=== PATIENT | male | born 1970 | race Caucasian/White ===

== ENCOUNTER 2021-05-31 08:45 | Outpatient (RCR) | payer OTHER, SELFPAY | END 2021-06-10 09:27 | disposition home or self-care (01) | LOC: HO.WCC 08:45 | PROVIDERS: PCP Internal Medicine; Visit Provider Physician Assistant | DX: E11.628 Type 2 diabetes mellitus with other skin complications (principal); L98.9 Disorder of the skin and subcutaneous tissue, unspecified; E11.65 Type 2 diabetes mellitus with hyperglycemia; E11.40 Type 2 diabetes mellitus with diabetic neuropathy, unspecified; Z79.4 Long term (current) use of insulin; Z79.84 Long term (current) use of oral hypoglycemic drugs; Z87.891 Personal history of nicotine dependence | CPT/HCPCS: 99212 ==

== ENCOUNTER 2022-08-06 12:40 | Outpatient (REF) | payer BC, MEDICARE, MEDICAID, SELFPAY ==
[2022-08-06 12:59] LABS: MANUAL DIFF FLAG NO
[2022-08-06 14:06] LABS: Appearance Urine Clear; Color Urine Yellow; Glucose Urine UA >=1000 mg/dL (Negative); Leukocyte Esterase Urine Negative (Negative); Nitrite Urine Negative (Negative); PH 5.5 (5.0-9.0); Specific Gravity - Urine >= 1.030 (1.005-1.025); UMIC TRIGGER UACC YES; Urine Blood Negative (Negative); Urine Ketones 15 mg/dL (Negative); Urine Protein Negative (Neg-Trace)
[2022-08-06 14:09] LABS: Bacteria Urine None Seen (None Seen); Hyaline Casts Urine 0-2 /LPF (0-2); RBC Urine 0-2 /HPF (0-2); Squamous Epithelial Cell Urine 0-2 /HPF (0-2); WBC Urine 0-5 /HPF (0-5)
[2022-08-06 14:36] LABS: Basophils Percent Auto 0.3 % (0-2); Eosinophils Absolute Auto 0.1 X10*3/uL (0.0-0.4); Hematocrit 41.6 % (42.0-52.0); Hemoglobin 14.3 g/dl (14.0-18.0); Imm Gran Abs Auto 0.03 X10*3/uL (0.00-0.03); Imm Gran Pct Auto 0.4 % (0.0-0.4); Lymphocytes Absolute Auto 2.7 X10*3/uL (1.2-4.9); Lymphocytes Percent Auto 36.8 % (20-40); Mean Corpuscular HGB Conc 34.4 g/dl (31.0-36.0); Mean Corpuscular Hemoglobin 30.2 pg (27.0-33.0); Mean Corpuscular Volume 87.9 fL (80.0-98.0); Mean Platelet Volume 10.8 fL (9.4-12.4); Monocytes Absolute Auto 0.5 X10*3/uL (0.1-1.2); Monocytes Percent Auto 6.9 % (2-11); Neutrophils Percent Auto 54.6 % (45-73); Platelet Count 265 X10*3/uL (160-400); Red Blood Count 4.73 X10*6/uL (4.60-5.80); Red Cell Distribution Width 12.6 % (11.0-16.0); White Blood Count 7.3 X10*3/uL (4.8-10.8)
[2022-08-06 15:15] LABS: Creatinine Urine 193.18 mg/dL; Microalbum/Creatinine Ratio Ur 11.3 ug/mg cr
[2022-08-06 15:26] LABS: Alanine Aminotransferase 22 U/L (0-40); Albumin Level 4.4 g/dL (3.5-5.0); Alkaline Phosphatase 115 U/L (39-117); Anion Gap 12 (12-20); Aspartate Amino Transferase 19 U/L (5-37); Bilirubin Total 1.7 mg/dL (0.0-1.0); Blood Urea Nitrogen 16 mg/dL (9-16); Calcium 9.3 mg/dL (8.4-10.2); Carbon Dioxide 26 mmol/L (22-29); Chloride 106 mmol/L (96-108); Cholesterol 128 mg/dL; Estimated Glomerular Filt Rate > 60; Glucose Fasting 245 mg/dL (60-99); HDL Cholesterol 34 mg/dL; LDL Cholesterol Calculated 70 mg/dl; Potassium 4.7 mmol/L (3.3-5.1); Sodium 139 mmol/L (135-145); Total Protein 7.3 g/dL (6.5-8.0); Triglycerides 123 mg/dL
[2022-08-06 15:35] LABS: TSH reflex Free T4 0.86 uIU/mL (0.32-4.0); Vitamin D 25-OH Total 24.4 ng/mL (>30)
[2022-08-08 16:08] LABS: TS Negative Control Passed; TS Panel A 0; TS Panel B 0; TS Positive Control Passed; TSpotTB Negative (Negative)
== END 2022-08-06 12:41 | disposition home or self-care (01) ==
LOC: HO.LAB 12:40
PROVIDERS: PCP Internal Medicine; Visit Provider Internal Medicine
DX: Z11.1 Encounter for screening for respiratory tuberculosis (principal); I10 Essential (primary) hypertension; E55.9 Vitamin D deficiency, unspecified; E11.9 Type 2 diabetes mellitus without complications; E78.00 Pure hypercholesterolemia, unspecified
CPT/HCPCS: 36415; 80053; 80061; 81001; 82043; 82306; 84443; 85025; 86481

== ENCOUNTER 2022-12-01 15:31 | Outpatient (AMB) | payer BC, MEDICARE, MEDICAID, SELFPAY ==
--- NOTE | 2022-12-01 15:35 | MHC.PC.OV ---
Vital Signs 12/01/22 15:36 Height 6 ft 1 in Weight 207 lb 4 oz BMI 27.3 BP 126/82 Blood Pressure Location Lt brachial Position Sitting Pulse 89 Pulse Source Pulse Oximeter Pulse Oximetry (%) 96 Oxygen Delivery Method Room Air Intake Visit Reasons: 4 month f/u Maxillofacial Prosthodontist Required: No Accompanied by: Self / Same As Patient Allergies Penicillins [PCN] Allergy (Intermediate, Verified 12/02/22 09:16) HIVES metformin Adverse Reaction (Intermediate, Verified 12/02/22 09:16) diarrhea Medication List - Last Reconciled 12/02/22 by Brando Ortiz MD albuterol sulfate 90 mcg/actuation (ProAir HFA) 2 puffs inhalation Q4-6H PRN beclomethasone dipropionate 80 mcg/actuation (Qvar RediHaler) 1 inh inhalation BID dulaglutide 1.5 mg (0.5 mL) subcut QWEEK 90 days glipizide ER 2.5 mg PO DAILY 90 days montelukast 10 mg PO QPM Tobacco use date assessed: 12/01/22 Dental Screening Dental Screen Date: 12/01/22 Did you have a dental visit in the last 12 months?: Yes Did you have a dental problem in the last 6 months where you did not have access to dental care?: No Was dental information given to patient?: Patient has dentist HPI 4 month f/u HPI Details Patient comes in today for his follow up visit States that he feels okay He denies any headaches or dizziness Denies any chest pains, no SOB No nausea/vomiting, no abdominal pain No change in bowel habits noted Has no follow up labs done recently although he did get some labs done a couple of weeks after he was last here in June 2022 [facility] Medical History Pure hypercholesterolemia Overweight (BMI 25.0-29.9) Erectile dysfunction Hypotestosteronism GERD (gastroesophageal reflux disease) Asthma Hyperlipidemia Diabetes mellitus Surgical History No pertinent past surgical history Family History Father Cancer Mother Diabetes CVD (cardiovascular disease) Brother No problems noted. Brother No problems noted. Social History Housing: House Alcohol intake: former Patient Tobacco Use Status: Former Tobacco user Second Hand Smoke Exposure: Yes service: No Current occupational status: disabled Cognitive needs: No Hearing needs: No Vision needs: Yes Questionnaire PHQ-9 Over the last 2 weeks, how often have you been bothered by any of the following problems? 1. Little interest or pleasure in doing things: not at all 2. Feeling down, depressed, or hopeless: not at all 3. Trouble falling or staying asleep, or sleeping too much: not at all 4. Feeling tired or having little energy: not at all 5. Poor appetite or overeating: not at all 6. Feeling bad about yourself - or that you are a failure or have let yourself or your family down: not at all 7. Trouble concentrating on things, such as reading the newspaper or watching television: not at all 8. Moving or speaking so slowly that other people could have noticed. Or the opposite - being so fidgety or restless that you have been moving around a lot more than usual: not at all 9. Thoughts that you would be better off or of hurting yourself in some way: not at all Total score: 0 Depression Screening Interpretation: Negative [id number] - PHQ-9 Billing: Yes Source: Developed by Drs. Manish Mo, Jyothi Serrano, Deondre An and colleagues, with an educational alicia from [employer]. Thrive Questionnaire Date Thrive assessed: 12/01/22 I am a: Patient What is your living situation today?: I have a steady place to live Within the past 12 months, did the food you bought not last and you didn't have the money to get more?: Never true Within the past 12 months, did you worry whether your food would run out before you got money to buy more?: Never true Do you have trouble paying for medicines?: No Do you have trouble getting transportation to medical appointments?: No Do you have trouble paying your heating and electricity bill?: No Do you have trouble taking care of your child, family member or friend?: No Do you have trouble with day-to-day activities such as bathing, preparing meals, shopping, managing finances, etc.?: No Are you currently unemployed and looking for a job?: No Are you interested in more education?: No Please select the resources that you would like help with: None Currently or been in a relationship where the following occur: no concerns reported AUDIT C Alcohol Use Questionnaire (AUDIT-C) 1. How often do you have a drink containing alcohol?: Never 3. How often do you have six or more drinks on one occasion?: Never Total Score: 0 Score Reviewed/Action Taken: Yes ALESSANDRO-7 AMB Questionnaire ALESSANDRO-7 Date ALESSANDRO - 7 assessed: 12/01/22 Feeling nervous, anxious, or on edge: 0 = Not at all Not being able to stop or control worryin = Not at all Worrying too much about different things: 0 = Not at all Trouble relaxin = Not at all Being so restless that it is hard to sit still: 0 = Not at all Becoming easily annoyed or irritable: 0 = Not at all Feeling afraid as if something awful might happen: 0 = Not at all Total ALESSANDRO-7 score (0-4 normal; 5-9 mild; 10-14 moderate; 15-21 severe): 0 Source: Developed by Drs. Manish Mo, Jyothi Serrano, Deondre An and colleagues, with an educational alicia from [employer]. Review of Systems Const Denies chills, Denies fatigue, Denies fever(s) and Denies headache(s) ENT Denies dysphagia, Denies dizziness, Denies otalgia, Denies headache(s), Denies neck pain, Denies odynophagia and Denies sore throat Card Denies chest pain, Denies palpitations and Denies dyspnea Resp Denies cough and Denies dyspnea GI Denies abdominal pain, Denies constipation, Denies dysphagia, Denies heartburn, Denies diarrhea, Denies nausea, Denies odynophagia and Denies vomiting Denies dysuria, Reports nocturia and Reports urinary frequency Musc Denies neck pain Neuro Denies dizziness and Denies headache(s) Endo Denies fatigue and Denies palpitations Physical exam (Primary Care) Vital Signs: Last Vital Signs Pulse 89 12/01/22 15:36 BP 126/82 12/01/22 15:36 Pulse Ox 96 12/01/22 15:36 Oxygen Delivery Method Room Air 12/01/22 15:36 BMI result Body Mass Index 27.3 Tobacco/Smoking Status: Tobacco use Status Tobacco use date assessed 12/01/22 12/01/22 15:40 Patient Tobacco Use Status Former Tobacco user 12/01/22 15:40 PHQ-9: PHQ-9 Score PHQ-9: Total score 0 12/01/22 16:16 Depression Screening Interpretation: Negative Thrive Assessment: Date of Thrive Assessment Date Thrive assessed 12/01/22 12/01/22 15:40 Currently or been in a relationship where the following occur: no concerns reported Const General: no acute distress and alert HENMT Ears: TM's normal bilaterally and EAC's normal Throat: Yes posterior oropharynx normal and Yes tonsils normal (no TP congestion) Neck Neck: Yes no lymphadenopathy and Yes supple Resp Auscultation: clear to auscultation bilaterally, no rales and no wheezes Cardio Rate: regular rate Rhythm: regular rhythm Heart sounds: no murmurs GI Palpation (GI): Soft to palpation and nontender Auscultation: normal bowel sounds Skin Rashes: no rashes Extrem General: Yes no clubbing, cyanosis or edema Results AMB Hemoglobin A1c AMB Hemoglobin A1c 10.5 % Last Edit by Laci Matias on 12/01/22 16:00 Results Reviewed Results Reviewed: Laboratory Last Values Hgb A1c (Clinic) 10.5 % (4.0-6.0) H 12/01/22 15:49 Laboratory Tests 08/06/22 12/01/22 12:57 15:49 Hgb A1c (Clinic) 10.5 H AST 19 ALT 22 Triglycerides 123 Cholesterol 128 LDL Cholesterol, Calc 70 HDL Cholesterol 34 Assessment and Plan Assessment & Plan (1) Diabetes mellitus: Code(s): E11.9 - Type 2 diabetes mellitus without complications Qualifiers: Diabetes mellitus type: type 2 Diabetes mellitus care home insulin use: without terminal manager use Diabetes mellitus complication status: without complication Qualified Code(s): E11.9 - Type 2 diabetes mellitus without complications Plan: In-office HgbA1c done today is at 10.5% (was at 9.9% a few months ago in June 2022) - goal is < 7.0% Reinforced diabetic diet Continue Glipizide ER 2.5 mg QD and Trulicity to 1.5 mg SQ once a week - patient admits that he forgets to take his Trulicity about half of the time; states that by the time he remembers to take it, it has been past due for a few days already He could not tolerate Metformin or Metformin ER in the past and is advised that if he still cannot get his diabetes under control with Trulicity, the next step would be to start him on some form of insulin and he prefers not to do that (2) Pure hypercholesterolemia: Code(s): E78.00 - Pure hypercholesterolemia, unspecified Plan: His fasting lipids were at goal when last checked in July 2022 Reinforced low cholesterol diet Will recheck his labs and fasting lipids in 3 months for follow up (3) Asthma: Code(s): J45.909 - Unspecified asthma, uncomplicated Qualifiers: Asthma severity: mild Asthma persistence: intermittent Asthma complication type: uncomplicated Qualified Code(s): J45.20 - Mild intermittent asthma, uncomplicated Plan: Appears stable Continue Montelukast 10 mg QD, Albuterol HFA 2 puffs every 6 hours PRN and Qvar Redihaler 80 mcg 1 inhalation BID (4) GERD (gastroesophageal reflux disease): Code(s): K21.9 - Gastro-esophageal reflux disease without esophagitis Qualifiers: Esophagitis presence: without esophagitis Qualified Code(s): K21.9 - Gastro-esophageal reflux disease without esophagitis Plan: Dietary restrictions reinforced (5) Overweight (BMI 25.0-29.9): Code(s): E66.3 - Overweight Plan: Reinforced diet/exercise as tolerated/lose weight Plan Follow up in 3 months Orders: Orders Comprehensive [place]. Panel Fast 3 Months E78.00 - Pure hypercholesterolemia, unspecified Complete Blood Count Auto Diff 3 Months I10 - Essential (primary) hypertension Microalbumin, Random (w Creat) 3 Months E11.9 - Type 2 diabetes mellitus without complications AMB Hemoglobin A1c 12/01/ Z13.9 - Encounter for screening, unspecified Lipid Panel 3 Months E78.00 - Pure hypercholesterolemia, unspecified TSH reflex Free T4 3 Months E78.00 - Pure hypercholesterolemia, unspecified UA CC w/rflx Micro + Cult 3 Months R30.0 - Dysuria Hemoglobin A1c 3 Months E11.9 - Type 2 diabetes mellitus without complications Vitamin D 25-OH Total 3 Months E55.9 - Vitamin D deficiency, unspecified Coding Level of Care Code Est Pt Level 4 (59378) Diagnoses Type 2 diabetes mellitus without complication, without long-term current use of insulin E11.9 Diabetes mellitus type: type 2 Diabetes mellitus terminal manager insulin use: without terminal manager use Diabetes mellitus complication status: without complication Pure hypercholesterolemia E78.00 Mild intermittent asthma without complication J45.20 Asthma severity: mild Asthma persistence: intermittent Asthma complication type: uncomplicated Gastroesophageal reflux disease without esophagitis K21.9 Esophagitis presence: without esophagitis Overweight (BMI 25.0-29.9) E66.3
[2022-12-01 15:36] VITALS: BP 126/82; PULSE 89; O2SAT 96; BMI 27.3
== END 2022-12-01 16:23 | disposition home or self-care (01) ==
PROVIDERS: PCP Internal Medicine; Visit Provider Internal Medicine
DX: E11.9 Type 2 diabetes mellitus without complications (principal)
CPT/HCPCS: 83036; 99214

== ENCOUNTER 2024-04-29 16:04 | Outpatient (AMB) | payer MEDICARE, MEDICAID, SELFPAY ==
[2024-04-29 16:05] VITALS: BP 116/80; PULSE 89; O2SAT 96; BMI 28.3
--- NOTE | 2024-04-29 16:05 | MHC.PC.OV ---
Vital Signs 04/29/24 16:05 Height 6 ft 1 in Weight 214 lb 8 oz BMI 28.3 BP 116/80 Blood Pressure Location Lt brachial Position Sitting Pulse 89 Pulse Source Pulse Oximeter Pulse Oximetry (%) 96 Oxygen Delivery Method Room Air Intake Visit Reasons: Rsch. from 05/02 DM Allergies Penicillins [PCN] Allergy (Intermediate, Verified 04/29/24 16:32) HIVES metformin Adverse Reaction (Intermediate, Verified 04/29/24 16:32) diarrhea Medication List - Last Reconciled 04/29/24 by Leann Olson PA-C albuterol sulfate 90 mcg/actuation 2 puffs inhalation Q4-6H PRN azithromycin For 250 mg dose pack: take 500 mg today (day 1), then 250 mg for 4 days (days 2-5) PO beclomethasone dipropionate 80 mcg/actuation (Qvar RediHaler) 1 inh inhalation BID dulaglutide 1.5 mg (0.5 mL) subcut QWEEK 90 days glipizide ER 2.5 mg PO DAILY 90 days Tobacco use date assessed: 04/29/24 Dental Screening Dental Screen Date: 04/29/24 Did you have a dental visit in the last 12 months?: Yes Did you have a dental problem in the last 6 months where you did not have access to dental care?: No Was dental information given to patient?: Patient has dentist [facility] Medical History (Updated 04/29/24 @ 16:46 by Leann Olson PA-C) Bronchitis Follow-up exam General medical exam Pure hypercholesterolemia Overweight (BMI 25.0-29.9) Erectile dysfunction Hypotestosteronism GERD (gastroesophageal reflux disease) Asthma Hyperlipidemia Diabetes mellitus Surgical History No pertinent past surgical history Family History Father Cancer Mother Diabetes CVD (cardiovascular disease) Brother No problems noted. Brother No problems noted. Social History Housing: House Alcohol intake: former Patient Tobacco Use Status: Former Tobacco user Second Hand Smoke Exposure: Yes service: No Current occupational status: disabled Cognitive needs: No Hearing needs: No Vision needs: Yes Questionnaire PHQ-9 Over the last 2 weeks, how often have you been bothered by any of the following problems? 1. Little interest or pleasure in doing things: not at all 2. Feeling down, depressed, or hopeless: not at all 3. Trouble falling or staying asleep, or sleeping too much: not at all 4. Feeling tired or having little energy: not at all 5. Poor appetite or overeating: not at all 6. Feeling bad about yourself - or that you are a failure or have let yourself or your family down: not at all 7. Trouble concentrating on things, such as reading the newspaper or watching television: not at all 8. Moving or speaking so slowly that other people could have noticed. Or the opposite - being so fidgety or restless that you have been moving around a lot more than usual: not at all 9. Thoughts that you would be better off or of hurting yourself in some way: not at all Total score: 0 Depression Screening Interpretation: Negative Depression Screening Done: Yes 69762 - PHQ-9 Billing: Yes Source: Developed by Drs. Manish Mo, Jyothi Serrano, Deondre An and colleagues, with an educational alicia from [employer]. Thrive Questionnaire Date Thrive assessed: 04/29/24 I am a: Patient What is your living situation today?: I have a steady place to live Within the past 12 months, did the food you bought not last and you didn't have the money to get more?: Never true Within the past 12 months, did you worry whether your food would run out before you got money to buy more?: Never true Do you have trouble paying for medicines?: No Do you have trouble getting transportation to medical appointments?: No Do you have trouble paying your heating and electricity bill?: No Do you have trouble taking care of your child, family member or friend?: No Do you have trouble with day-to-day activities such as bathing, preparing meals, shopping, managing finances, etc.?: No Are you currently unemployed and looking for a job?: No Are you interested in more education?: No Please select the resources that you would like help with: None THRIVE Score: 0 AUDIT C Alcohol Use Questionnaire (AUDIT-C) 1. How often do you have a drink containing alcohol?: Never 3. How often do you have six or more drinks on one occasion?: Never Total Score: 0 Score Reviewed/Action Taken: Yes ALESSANDRO-7 AMB Questionnaire ALESSANDRO-7 Date ALESSANDRO - 7 assessed: 04/29/24 Feeling nervous, anxious, or on edge: 0 = Not at all Not being able to stop or control worryin = Not at all Worrying too much about different things: 0 = Not at all Trouble relaxin = Not at all Being so restless that it is hard to sit still: 0 = Not at all Becoming easily annoyed or irritable: 0 = Not at all Feeling afraid as if something awful might happen: 0 = Not at all Total ALESSANDRO-7 score (0-4 normal; 5-9 mild; 10-14 moderate; 15-21 severe): 0 Source: Developed by Drs. Manish Mo, Jyothi Serrano, Deondre An and colleagues, with an educational alicia from [employer]. ALESSANDRO-7 Assessment Billing ALESSANDRO-7 Assessment Tool: ALESSANDRO-7 Assessment 98203 Physical exam (Primary Care) Vital Signs: Last Vital Signs Pulse 89 04/29/24 16:05 BP 116/80 04/29/24 16:05 Pulse Ox 96 04/29/24 16:05 Oxygen Delivery Method Room Air 04/29/24 16:05 Care Plan Goal for BP management: <130/80 BMI result Body Mass Index 28.3 BMI Assessment/Plan discussion: High BMI High, discussed plan: lifestyle, weight reduction, dietary, physical activity and alcohol moderation Tobacco/Smoking Status: Tobacco use Status Tobacco use date assessed 04/29/24 04/29/24 16:13 Patient Tobacco Use Status Former Tobacco user 04/29/24 16:13 PHQ-9: PHQ-9 Score PHQ-9: Total score 0 04/29/24 16:13 Depression Screening Interpretation: Negative Thrive Assessment: Date of Thrive Assessment Date Thrive assessed 04/29/24 04/29/24 16:13 Results AMB Hemoglobin A1c AMB Hemoglobin A1c 7.7 % Last Edit by Sisi Aceves CMA on 04/29/24 16:16 Results Reviewed Results Reviewed: Laboratory Last Values Hgb A1c (Clinic) 7.7 % (4.0-6.0) H 04/29/24 16:13 Coding Level of Care Code Est Pt Level 4 (00572) Complex EM visit Add On G2211 Diagnoses Follow-up exam Z09 Pure hypercholesterolemia E78.00 Hypertension I10 Overweight (BMI 25.0-29.9) E66.3 Type 2 diabetes mellitus without complication, without long-term current use of insulin E11.9 Diabetes mellitus type: type 2 Diabetes mellitus [facility] insulin use: without exterminator helper use Diabetes mellitus complication status: without complication Pure hypercholesterolemia E78.00 Hyperlipidemia type: pure hypercholesterolemia Mild intermittent asthma without complication J45.20 Asthma severity: mild Asthma persistence: intermittent Asthma complication type: uncomplicated Gastroesophageal reflux disease without esophagitis K21.9 Esophagitis presence: without esophagitis Hypotestosteronism E34.9 Erectile dysfunction, unspecified erectile dysfunction type N52.9 Erectile dysfunction type: unspecified Bronchitis J40 Additional Codes PHQ-9 - 26319 - PHQ-9 Billing: Yes ([id number]) ALESSANDRO-7 Assessment Billing - ALESSANDRO-7 Assessment Tool: ALESSANDRO-7 Assessment 17845 ([id number]) Assessment & Plan Assessment & Plan (1) Follow-up exam: Code(s): Z09 - Encounter for follow-up examination after completed treatment for conditions other than malignant neoplasm Category: Medical (2) Pure hypercholesterolemia: Code(s): E78.00 - Pure hypercholesterolemia, unspecified Category: Medical Plan: Condition is chronic and stable continue to monitor. (3) Hypertension: Code(s): I10 - Essential (primary) hypertension Category: Medical Plan: Condition is chronic and stable continue to monitor. (4) Overweight (BMI 25.0-29.9): Code(s): E66.3 - Overweight Category: Medical Plan: Patient improving his diet and exercising a lot more. Condition is chronic and stable continue to monitor. (5) Diabetes mellitus: Code(s): E11.9 - Type 2 diabetes mellitus without complications Category: Medical Qualifiers: Diabetes mellitus type: type 2 Diabetes mellitus exterminator helper insulin use: without [facility] use Diabetes mellitus complication status: without complication Qualified Code(s): E11.9 - Type 2 diabetes mellitus without complications Plan: A1c level in October of 2022 was 10.5 today it is 7.7. Patient currently on Trulicity 1.5 mg subQ weekly and glipizide 2.5 mg weekly. I suggested increasing the Trulicity or adding metformin and patient declined at this time reports he does not want to make any changes in his medications due to his A1c has significantly come down. Patient to follow-up in [address] Ortzi if A1c level is not at 7.0 or less adjustments will be made. Patient understands agrees with this plan. (6) Hyperlipidemia: Code(s): E78.5 - Hyperlipidemia, unspecified Category: Medical Qualifiers: Hyperlipidemia type: pure hypercholesterolemia Qualified Code(s): E78.00 - Pure hypercholesterolemia, unspecified Plan: Condition is chronic and stable continue to monitor. (7) Asthma: Code(s): J45.909 - Unspecified asthma, uncomplicated Category: Medical Qualifiers: Asthma severity: mild Asthma persistence: intermittent Asthma complication type: uncomplicated Qualified Code(s): J45.20 - Mild intermittent asthma, uncomplicated Plan: Patient has albuterol and Qvar RediHaler. Condition is chronic and stable continue to monitor. (8) GERD (gastroesophageal reflux disease): Code(s): K21.9 - Gastro-esophageal reflux disease without esophagitis Category: Medical Qualifiers: Esophagitis presence: without esophagitis Qualified Code(s): K21.9 - Gastro-esophageal reflux disease without esophagitis Plan: Condition is chronic and stable continue to monitor. (9) Hypotestosteronism: Code(s): E34.9 - Endocrine disorder, unspecified Category: Medical Plan: Patient requesting labs for testosterone due to history of low testosterone. Not currently on testosterone supplements. Will order at this time. Condition is chronic and stable continue to monitor. (10) Erectile dysfunction: Code(s): N52.9 - Male erectile dysfunction, unspecified Category: Medical Qualifiers: Erectile dysfunction type: unspecified Qualified Code(s): N52.9 - Male erectile dysfunction, unspecified Plan: Condition is chronic and stable continue to monitor. (11) Bronchitis: Code(s): J40 - Bronchitis, not specified as acute or chronic Category: Medical Plan: Patient with bronchitis infection. Will prescribe Z-Alex. Will continue to monitor. Plan Plan - Maintain current diabetes management with Trulicity and Glipizide. Encourage lifestyle modifications, including diet and exercise, to further improve HbA1c. - Treat upper respiratory infection symptoms with a Z-Alex to address persistent cough. - Monitor peripheral neuropathy symptoms; further discussion on glucose management to mitigate neuropathy progression. - Proceed with fasting lab work to evaluate liver function, lipid panel, testosterone levels, and reassess diabetes control. - Discuss possible prostate cancer screening due to family history. - Encourage continuous activity and weight management strategies. Orders: Orders T Spot TB Today Z00.00 - Encounter for general adult medical examination without abnormal findings TSH reflex Free T4 Today Z00.00 - Encounter for general adult medical examination without abnormal findings Microalbumin, Random (w Creat) Today E11.9 - Type 2 diabetes mellitus without complications Vitamin D 25-OH Total Today Z00.00 - Encounter for general adult medical examination without abnormal findings Testosterone, Total Today Z00.00 - Encounter for general adult medical examination without abnormal findings PSA,Total (Free>4and<10) Today Z00.00 - Encounter for general adult medical examination without abnormal findings AMB Hemoglobin A1c Today Z13.9 - Encounter for screening, unspecified Complete Blood Count Auto Diff Today Z00.00 - Encounter for general adult medical examination without abnormal findings Comprehensive Met. Panel Today Z00.00 - Encounter for general adult medical examination without abnormal findings Lipid Panel Today Z00.00 - Encounter for general adult medical examination without abnormal findings Magnesium Today Z00.00 - Encounter for general adult medical examination without abnormal findings Liver Panel Today Z00.00 - Encounter for general adult medical examination without abnormal findings Medications: New azithromycin For 250 mg dose pack: take 500 mg today (day 1), then 250 mg for 4 days (days 2-5) PO 6 tabs 0RF Refilled dulaglutide 1.5 mg (0.5 mL) subcut QWEEK 90 days 2 mL 3RF E11.9 - Type 2 diabetes mellitus without complications Patient Instructions: Patient Instructions - Continue current diabetes medications as prescribed. - Begin Z-Alex as directed for cough. - Schedule fasting blood tests for liver function, lipid panel, and testosterone levels. - Engage in regular exercise and monitor dietary intake to support ongoing weight management. - Report any significant changes in symptoms, particularly regarding neuropathy and respiratory issues. - Follow up in six months for reassessment of diabetes and overall health. - Consider prostate cancer screening discussion in future visits. Scribe Plan - Not visible on output: History of Present Illness The patient is a 54-year-old male presenting for a follow-up regarding his Type 2 Diabetes Mellitus. Previously diagnosed, he is on Trulicity 1.5 mg weekly and Glipizide 2.5 mg daily. His most recent HbA1c was 7.7, improved from 10.5 in November 2022. The patient reports significant weight loss of approximately 120 pounds since the onset of diabetes, attributed to dietary changes. He experiences periodic glucose levels ranging from 120 to 300, dependent on diet. He also reports improved asthma symptoms, requiring the red inhaler only for emergencies, notably experiencing fewer issues as he ages. He has recently had symptoms of an upper respiratory infection, characterized by a persistent cough and flu-like symptoms without fever. He manages asthma with emergency inhalers and has lost additional weight, contributing to an improvement. He expresses concern over potential peripheral neuropathy manifesting as toe pain. Lastly, he requests a follow-up on a prior TB test, likely related to caregiving for his mother, and seeks evaluation for testosterone levels due to energy loss and potential muscle mass reduction. Social History - Significant weight loss of approximately 120 pounds since diagnosed with diabetes. - Active care for his elderly mother, indicating family responsibilities. - Decreased food intake recently due to illness. - Attempts regular exercise and walking to manage weight and health. - Expresses interest in improving muscle mass and physical fitness. - Family history includes prostate cancer in his father. Review of Systems - Constitutional: Reports weight loss. - Respiratory: Reports persistent cough associated with changing from hot to cold environments. - Neurological: Reports toe pain suggestive of possible neuropathy. - Musculoskeletal: Reports difficulty in increasing muscle mass. Physical Exam Appearance: Alert. Oriented X3. No acute distress. Head: Normal external exam. Normocephalic. Atraumatic. Eyes: Pupils are equal, round, and reactive to light. Extraocular movements intact. Conjunctiva and sclera normal. Eyelids normal. Ears: External auditory canal normal. Tympanic membranes normal. Throat: Pharynx normal. Uvula midline. Moist mucous membranes. Neck: Normal inspection. Neck supple. Full range of motion. No adenopathy. Thyroid Normal. No meningeal signs. No neck mass noted. Cardiovascular: Normal heart rate and rhythm. Heart sound normal. No murmurs noted. Pulses normal throughout. Respiratory: No respiratory distress. Painless inspiration. Breath sounds normal. No wheezes/rales/rhonchi noted. Chest nontender. No accessory muscle usage noted or decreased air movement noted. Abdomen: Soft and nontender. Bowel sounds normal in all 4 quadrants. No distention noted. No organomegaly noted. No visible injury noted. Back: No costovertebral angle tenderness. Full range of motion noted. Skin: Skin warm and dry. Normal skin color. Normal skin turgor. No rashes/lesions/lacerations noted. Extremities: No lower extremity edema. Extremities exhibit normal range of motion. Extremities nontender. Neuropathy pain noted in toes. Neuro: Oriented X 3. No motor deficit. No sensory deficit. Reflexes normal. Results - Labs: HbA1c noted to be 7.7 from a previous high of 10.5 in November 2022. Plan - Maintain current diabetes management with Trulicity and Glipizide. Encourage lifestyle modifications, including diet and exercise, to further improve HbA1c. - Treat upper respiratory infection symptoms with a Z-Alex to address persistent cough. - Monitor peripheral neuropathy symptoms; further discussion on glucose management to mitigate neuropathy progression. - Proceed with fasting lab work to evaluate liver function, lipid panel, testosterone levels, and reassess diabetes control. - Discuss possible prostate cancer screening due to family history. - Encourage continuous activity and weight management strategies. Patient was informed and verbally consented to the use of an ambient scribe for clinic note documentation during this visit. Discussion Notes I discussed the ongoing management of diabetes with a focus on maintaining the current regimen of Trulicity and Glipizide, given the improved HbA1c level. We reviewed the importance of lifestyle changes, including diet and exercise, to achieve further glycemic control. An antibiotic, Z-Aelx, was prescribed to address the symptoms of persistent cough. I emphasized the need for fasting blood tests to accurately assess liver function, lipid levels, and added testosterone testing to investigate fatigue and muscle mass concerns. We discussed family history of prostate cancer and considered the potential for screening. Future care was planned with a recommendation to return fasting for a complete panel and six-month follow-up. Patient Instructions - Continue current diabetes medications as prescribed. - Begin Z-Alex as directed for cough. - Schedule fasting blood tests for liver function, lipid panel, and testosterone levels. - Engage in regular exercise and monitor dietary intake to support ongoing weight management. - Report any significant changes in symptoms, particularly regarding neuropathy and respiratory issues. - Follow up in six months for reassessment of diabetes and overall health. - Consider prostate cancer screening discussion in future visits.
== END 2024-04-29 16:35 | disposition home or self-care (01) ==
PROVIDERS: PCP Internal Medicine; Visit Provider Physician Assistant Medical
DX: Z13.9 Encounter for screening, unspecified (principal)

== ENCOUNTER → 2024-04-29 16:04 | Outpatient (BNVA) | payer MEDICARE, MEDICAID, SELFPAY | PROVIDERS: PCP Internal Medicine; Visit Provider Physician Assistant Medical | DX: Z09 Encounter for follow-up examination after completed treatment for conditions other than malignant neoplasm (principal); I10 Essential (primary) hypertension; E66.3 Overweight; E11.9 Type 2 diabetes mellitus without complications; E78.00 Pure hypercholesterolemia, unspecified; J45.20 Mild intermittent asthma, uncomplicated; K21.9 Gastro-esophageal reflux disease without esophagitis; E34.9 Endocrine disorder, unspecified; N52.9 Male erectile dysfunction, unspecified; J40 Bronchitis, not specified as acute or chronic | CPT/HCPCS: 83036; 96127; 99212 ==

== ENCOUNTER 2024-08-19 10:38 | Outpatient (REF) | payer MEDICARE, MEDICAID, SELFPAY ==
[2024-08-19 10:59] LABS: MANUAL DIFF FLAG NO
[2024-08-19 12:04] LABS: Basophils Percent Auto 0.2 % (0-2); Eosinophils Absolute Auto 0.2 X10*3/uL (0.0-0.4); Eosinophils Percent Auto 2.3 % (0-4); Hemoglobin 14.5 g/dl (14.0-18.0); Imm Gran Abs Auto 0.04 X10*3/uL (0.00-0.03); Imm Gran Pct Auto 0.5 % (0.0-0.4); Lymphocytes Absolute Auto 2.2 X10*3/uL (1.2-4.9); Lymphocytes Percent Auto 24.5 % (20-40); Mean Corpuscular HGB Conc 35.4 g/dl (31.0-36.0); Mean Corpuscular Hemoglobin 30.9 pg (27.0-33.0); Mean Corpuscular Volume 87.4 fL (80.0-98.0); Mean Platelet Volume 10.7 fL (9.4-12.4); Monocytes Absolute Auto 0.6 X10*3/uL (0.1-1.2); Monocytes Percent Auto 7.2 % (2-11); Neutrophils Absolute Auto 5.8 x10*3/uL (2.0-8.3); Neutrophils Percent Auto 65.3 % (45-73); Platelet Count 228 X10*3/uL (160-400); Red Blood Count 4.69 X10*6/uL (4.60-5.80); Red Cell Distribution Width 12.6 % (11.0-16.0); White Blood Count 8.8 X10*3/uL (4.8-10.8)
[2024-08-19 13:05] LABS: PSA,Total (Free>4and<10) 0.89 ng/mL (0.00-4.00)
[2024-08-19 13:10] LABS: TSH reflex Free T4 1.38 uIU/mL (0.32-4.0); Vitamin D 25-OH Total 22.5 ng/mL (>30)
[2024-08-19 13:33] LABS: Anion Gap 10 (12-20)
[2024-08-19 13:38] LABS: Alanine Aminotransferase 17 U/L (0-40); Albumin Level 4.2 g/dL (3.5-5.0); Alkaline Phosphatase 100 U/L (39-117); Aspartate Amino Transferase 19 U/L (5-37); Bilirubin Direct 0.4 mg/dL (0.0-0.5); Bilirubin Total 1.3 mg/dL (0.0-1.0); Blood Urea Nitrogen 16 mg/dL (9-16); Calcium 9.1 mg/dL (8.4-10.2); Carbon Dioxide 24 mmol/L (22-29); Chloride 107 mmol/L (96-108); Cholesterol 118 mg/dL (<200); Estimated Glomerular Filt Rate > 60; Glucose Random 227 mg/dL (60-115); HDL Cholesterol 29 mg/dL (>40); LDL Cholesterol Calculated 61 mg/dL (<100); Magnesium 1.8 mg/dL (1.6-2.6); Potassium 3.7 mmol/L (3.3-5.1); Sodium 137 mmol/L (135-145); Total Protein 6.9 g/dL (6.5-8.0); Triglycerides 144 mg/dL (<150)
[2024-08-19 13:45] LABS: Creatinine Urine 304.29 mg/dL; Microalbum/Creatinine Ratio Ur 13.4 ug/mg cr (<30)
[2024-08-22 16:38] LABS: TS Negative Control Passed; TS Panel A 0; TS Panel B 0; TS Positive Control Passed; TSpotTB Negative (Negative)
[2024-09-09 10:49] LABS: Testosterone, Total 260 ng/dL (250-1100)
== END 2024-08-19 10:39 | disposition home or self-care (01) ==
LOC: HO.LAB 10:38
PROVIDERS: PCP Internal Medicine; Visit Provider Physician Assistant Medical
DX: Z00.00 Encounter for general adult medical examination without abnormal findings (principal); E11.9 Type 2 diabetes mellitus without complications; Z12.5 Encounter for screening for malignant neoplasm of prostate
CPT/HCPCS: 36415; 80053; 80061; 82043; 82248; 82306; 82570; 83735; 84153; 84403; 84443; 85025; 86481

== ENCOUNTER 2024-10-27 16:03 | Outpatient (AMB) | payer MEDICARE, MEDICAID, SELFPAY ==
--- NOTE | 2024-10-27 16:10 | A.OFFPC_ITS ---
Vital Signs 10/27/24 16:12 Height 6 ft 1 in Weight 220 lb 2 oz BMI 29.0 BP 122/72 Blood Pressure Location Lt brachial Position Sitting Pulse 82 Pulse Source Pulse Oximeter Temp 97.3 F Temp Source Temporal Artery Scan Pulse Oximetry (%) 97 Oxygen Delivery Method Room Air Intake Visit Reasons: 6 month f/u Intake Note: Patient is here to follow up on DM, HLD, Asthma, HTN. Translator And Interpreter Required: No Operations Manager/Coordinator: Not Required per policy Accompanied by: Self / Same As Patient Allergies Penicillins (PCN) Allergy (Intermediate, Verified 10/27/24 16:47) HIVES metformin Adverse Reaction (Intermediate, Verified 10/27/24 16:47) diarrhea Medication List - Last Reconciled 10/27/24 by Brando Ortiz MD albuterol sulfate 90 mcg/actuation 2 puffs inhalation Q4-6H PRN beclomethasone dipropionate 80 mcg/actuation (Qvar RediHaler) 1 inh inhalation BID cholecalciferol (vitamin D3) 50 mcg PO DAILY dulaglutide (Trulicity) 1.5 mg (0.5 mL) subcut QWEEK glipizide ER 2.5 mg PO DAILY 90 days Tobacco use date assessed: 10/27/24 Dental Screening Dental Screen Date: 04/29/24 HPI 6 month f/u HPI Details Patient comes in today for his follow up visit - was last seen by me almost 2 years ago on 12/01/2022 Patient states that he feels okay He denies any headaches or dizziness Denies any chest pains, no increased shortness of breath No nausea/vomiting, no abdominal pain No change in bowel habits noted He would like to go over the results of his labs done a couple of months ago [facility] Medical History Vitamin D deficiency Bronchitis Follow-up exam General medical exam Pure hypercholesterolemia Overweight (BMI 25.0-29.9) Erectile dysfunction Hypotestosteronism GERD (gastroesophageal reflux disease) Asthma Hyperlipidemia Diabetes mellitus Surgical History No pertinent past surgical history Family History Father Cancer Mother Diabetes CVD (cardiovascular disease) Brother No problems noted. Brother No problems noted. Social History Housing: House Alcohol intake: former Patient Tobacco Use Status: Former Tobacco user e-Cigarette/Vaping Use: Never Used Second Hand Smoke Exposure: Yes service: No Current occupational status: disabled Cognitive needs: No Hearing needs: No Vision needs: Yes (Glasses) Questionnaire PHQ-9 Over the last 2 weeks, how often have you been bothered by any of the following problems? 1. Little interest or pleasure in doing things: not at all 2. Feeling down, depressed, or hopeless: not at all 3. Trouble falling or staying asleep, or sleeping too much: nearly every day 4. Feeling tired or having little energy: nearly every day 5. Poor appetite or overeating: not at all 6. Feeling bad about yourself - or that you are a failure or have let yourself or your family down: not at all 7. Trouble concentrating on things, such as reading the newspaper or watching television: not at all 8. Moving or speaking so slowly that other people could have noticed. Or the opposite - being so fidgety or restless that you have been moving around a lot more than usual: not at all 9. Thoughts that you would be better off or of hurting yourself in some way: not at all Total score: 6 Depression Screening Interpretation: Positive Depression Screening Follow-up: Follow-up Visit Requested Depression Screening Done: Yes 09255 - PHQ-9 Billing: Yes Source: Developed by Drs. Manish Mo, Jyothi Serrano, Deondre An and colleagues, with an educational alicia from [employer]. Thrive Questionnaire Date Thrive assessed: 10/27/24 I am a: Patient What is your living situation today?: I have a steady place to live Within the past 12 months, did the food you bought not last and you didn't have the money to get more?: I choose not to answer this question Within the past 12 months, did you worry whether your food would run out before you got money to buy more?: I choose not to answer this question Do you have trouble paying for medicines?: I choose not to answer this question Do you have trouble getting transportation to medical appointments?: I choose not to answer this question Do you have trouble paying your heating and electricity bill?: I choose not to answer this question Do you have trouble taking care of your child, family member or friend?: I choose not to answer this question Do you have trouble with day-to-day activities such as bathing, preparing meals, shopping, managing finances, etc.?: I choose not to answer this question Are you currently unemployed and looking for a job?: I choose not to answer this question Are you interested in more education?: I choose not to answer this question Please select the resources that you would like help with: None Currently or been in a relationship where the following occur: No concerns reported THRIVE Score: 0 AUDIT C Alcohol Use Questionnaire (AUDIT-C) 1. How often do you have a drink containing alcohol?: Never Total Score: 0 Score Reviewed/Action Taken: Yes ALESSANDRO-7 AMB Questionnaire ALESSANDRO-7 Date ALESSANDRO - 7 assessed: 10/27/24 Feeling nervous, anxious, or on edge: 0 = Not at all Not being able to stop or control worryin = Not at all Worrying too much about different things: 0 = Not at all Trouble relaxin = Nearly every day Being so restless that it is hard to sit still: 3 = Nearly every day Becoming easily annoyed or irritable: 3 = Nearly every day Feeling afraid as if something awful might happen: 0 = Not at all Total ALESSANDRO-7 score (0-4 normal; 5-9 mild; 10-14 moderate; 15-21 severe): 9 Source: Developed by Drs. Manish Mo, Jyothi Serrano, Deondre An and colleagues, with an educational alicia from [employer]. Review of Systems Const Denies chills, Reports fatigue, Denies fever(s) and Denies headache(s) ENT Denies dysphagia, Denies dizziness, Denies otalgia, Denies headache(s), Denies neck pain, Denies odynophagia and Denies sore throat Card Denies chest pain, Denies palpitations and Denies dyspnea Resp Denies chest congestion, Denies cough and Denies dyspnea GI Denies abdominal pain, Denies constipation, Denies dysphagia, Denies heartburn, Denies diarrhea, Denies nausea, Denies odynophagia and Denies vomiting Denies difficulty urinating, Denies dysuria, Reports nocturia and Reports urinary frequency Musc Denies back pain and Denies neck pain Skin/Breast Denies rash Neuro Denies dizziness and Denies headache(s) Endo Reports fatigue and Denies palpitations Hai/Lymph Denies easy bruising Physical exam (Primary Care) Vital Signs: Last Vital Signs Temp 97.3 F 10/27/24 16:12 Pulse 82 10/27/24 16:12 BP 122/72 10/27/24 16:12 Pulse Ox 97 10/27/24 16:12 Oxygen Delivery Method Room Air 10/27/24 16:12 BMI result Body Mass Index 29.0 Tobacco/Smoking Status: Tobacco use Status Tobacco use date assessed 10/27/24 10/27/24 16:18 Patient Tobacco Use Status Former Tobacco user 10/27/24 16:18 e-Cigarette/Vaping Use Never Used 10/27/24 16:18 PHQ-9: PHQ-9 Score PHQ-9: Total score 6 10/27/24 16:47 Depression Screening Interpretation: Positive Depression Screening Follow-up: Follow-up Visit Requested Thrive Assessment: Date of Thrive Assessment Date Thrive assessed 04/29/24 10/27/24 16:18 Currently or been in a relationship where the following occur: No concerns reported Const General: no acute distress and alert HENMT Ears: TM's normal bilaterally and EAC's normal Throat: Yes posterior oropharynx normal and Yes tonsils normal (no TP congestion) Neck Neck: Yes no lymphadenopathy and Yes supple Resp Auscultation: clear to auscultation bilaterally, no rales and no wheezes Cardio Rate: regular rate Rhythm: regular rhythm Heart sounds: no murmurs GI Palpation (GI): Soft to palpation and nontender Auscultation: normal bowel sounds Skin Rashes: no rashes Extrem General: Yes no clubbing, cyanosis or edema Results AMB Hemoglobin A1c AMB Hemoglobin A1c 8.8 % Last Edit by LUCIAN Love on 10/27/24 16:22 Results Reviewed Results Reviewed: Laboratory Last Values Hgb A1c (Clinic) 8.8 % (4.0-6.0) H 10/27/24 16:10 Laboratory Tests 08/06/22 08/06/22 08/19/24 12:52 12:57 10:52 WBC Hgb Hct Plt Count Sodium Potassium Creatinine Estimated GFR Fasting Glucose 245 H Hgb A1c (Clinic) Calcium Magnesium Total Bilirubin AST ALT Triglycerides Cholesterol LDL Cholesterol, Calc HDL Cholesterol Total PSA 25-OH Vitamin D Total TSH Total Testosterone Urine pH 5.5 Ur Specific [place] >= 1.030 H Urine Protein Negative Urine Glucose (UA) >=1000 H Urine Blood Negative Urine Nitrite Negative Ur Leukocyte Esterase Negative Microalb/Creat Ratio 13.4 08/19/24 10/27/24 10:57 16:10 WBC 8.8 Hgb 14.5 Hct 41.0 L Plt Count 228 Sodium 137 Potassium 3.7 Creatinine 0.77 Estimated GFR > 60 Fasting Glucose Hgb A1c (Clinic) 8.8 H Calcium 9.1 Magnesium 1.8 Total Bilirubin 1.3 H AST 19 ALT 17 Triglycerides 144 Cholesterol 118 LDL Cholesterol, Calc 61 HDL Cholesterol 29 L Total PSA 0.89 25-OH Vitamin D Total 22.5 L TSH 1.38 Total Testosterone 260 Urine pH Ur Specific [place] Urine Protein Urine Glucose (UA) Urine Blood Urine Nitrite Ur Leukocyte Esterase Microalb/Creat Ratio Coding Level of Care Code Est Pt Level 4 (61850) Diagnoses Type 2 diabetes mellitus without complication, without long-term current use of insulin E11.9 Diabetes mellitus type: type 2 Diabetes mellitus manager intermediate insulin use: without manager intermediate use Diabetes mellitus complication status: without complication Pure hypercholesterolemia E78.00 Mild intermittent asthma without complication J45.20 Asthma severity: mild Asthma persistence: intermittent Asthma complication type: uncomplicated Gastroesophageal reflux disease without esophagitis K21.9 Esophagitis presence: without esophagitis Vitamin D deficiency E55.9 Overweight (BMI 25.0-29.9) E66.3 Additional Codes PHQ-9 - 80908 - PHQ-9 Billing: Yes ([id number]) Assessment & Plan Assessment & Plan (1) Diabetes mellitus: Code(s): E11.9 - Type 2 diabetes mellitus without complications Category: Medical Qualifiers: Diabetes mellitus type: type 2 Diabetes mellitus manager intermediate insulin use: without correction use Diabetes mellitus complication status: without complication Qualified Code(s): E11.9 - Type 2 diabetes mellitus without complications Plan: His in-office HgbA1c today is at 8.8% (was at 7.7& a few months ago in April 2024) - goal is at least <7.0% Reinforced diabetic diet - patient admits to poor compliance with his diet over the past year or so Continue Glipizide ER 2.5 mg QD and Trulicity to 1.5 mg SQ once a week Will start him additionally on Jardiance 25 mg Q AM He could not tolerate Metformin or Metformin ER in the past and is advised that if he still cannot get his diabetes under control with his current Rx, the next step would be to start him on some form of insulin (2) Pure hypercholesterolemia: Code(s): E78.00 - Pure hypercholesterolemia, unspecified Category: Medical Plan: Results of his labs done a couple of months ago reviewed and discussed with patient Reinforced low-cholesterol diet Will recheck his labs and fasting lipids in 3 months for follow-up (3) Asthma: Code(s): J45.909 - Unspecified asthma, uncomplicated Category: Medical Qualifiers: Asthma severity: mild Asthma persistence: intermittent Asthma complication type: uncomplicated Qualified Code(s): J45.20 - Mild intermittent asthma, uncomplicated Plan: Controlled Continue Montelukast 10 mg QD, Albuterol HFA 2 puffs every 6 hours PRN and Qvar Redihaler 80 mcg 1 inhalation BID (4) GERD (gastroesophageal reflux disease): Code(s): K21.9 - Gastro-esophageal reflux disease without esophagitis Category: Medical Qualifiers: Esophagitis presence: without esophagitis Qualified Code(s): K21.9 - Gastro-esophageal reflux disease without esophagitis Plan: Dietary restrictions reinforced (5) Vitamin D deficiency: Code(s): E55.9 - Vitamin D deficiency, unspecified Category: Medical Plan: Continue Vitamin D3 2000 units QD (6) Overweight (BMI 25.0-29.9): Code(s): E66.3 - Overweight Category: Medical Plan: Reinforced diet/exercise as tolerated/lose weight Plan Follow up in 3 months Orders: Orders AMB Hemoglobin A1c 10/27/24 E11.9 - Type 2 diabetes mellitus without complications Lipid Panel 3 Months E78.00 - Pure hypercholesterolemia, unspecified Comprehensive [place]. Panel Fast 3 Months E78.00 - Pure hypercholesterolemia, unspecified Complete Blood Count Auto Diff 3 Months D64.9 - Anemia, unspecified Microalbumin, Random (w Creat) 3 Months E11.9 - Type 2 diabetes mellitus without complications TSH reflex Free T4 3 Months E78.00 - Pure hypercholesterolemia, unspecified UA CC w/rflx Micro + Cult 3 Months R30.0 - Dysuria Vitamin D 25-OH Total 3 Months E55.9 - Vitamin D deficiency, unspecified Hemoglobin A1c 3 Months E11.9 - Type 2 diabetes mellitus without complications Vitamin B12 and Folate 3 Months E53.8 - Deficiency of other specified B group vitamins Medications: New Jardiance (empagliflozin) 25 mg PO QAM 30 tabs 3RF 30 days NS
[2024-10-27 16:12] VITALS: BP 122/72; PULSE 82; TEMP 36.3; O2SAT 97; BMI 29.0
== END 2024-10-27 16:54 | disposition home or self-care (01) ==
LOC: HO.HMCH 16:03
PROVIDERS: PCP Internal Medicine; Visit Provider Internal Medicine
DX: E11.9 Type 2 diabetes mellitus without complications (principal)

== ENCOUNTER → 2024-10-27 16:03 | Outpatient (BNVA) | payer MEDICARE, MEDICAID, SELFPAY | PROVIDERS: PCP Internal Medicine; Visit Provider Internal Medicine | DX: E11.9 Type 2 diabetes mellitus without complications (principal); J45.909 Unspecified asthma, uncomplicated; I10 Essential (primary) hypertension; E78.00 Pure hypercholesterolemia, unspecified; J45.20 Mild intermittent asthma, uncomplicated; K21.9 Gastro-esophageal reflux disease without esophagitis; E55.9 Vitamin D deficiency, unspecified; E66.3 Overweight; Z68.29 Body mass index [BMI] 29.0-29.9, adult | CPT/HCPCS: 83036; 96127; 99212 ==

== ENCOUNTER 2025-02-07 14:22 | Outpatient (AMB) | payer OTHER, MEDICAID, SELFPAY ==
[2025-02-07 15:09] VITALS: BP 100/68; PULSE 75; RESP 18; O2SAT 98; BMI 29.0
--- NOTE | 2025-02-07 15:09 | A.OFFPC_ITS ---
Vital Signs 02/07/25 15:09 Height 6 ft 1 in Weight 220 lb BMI 29.0 BP 100/68 Blood Pressure Location Lt brachial Position Sitting Respiration 18 Pulse 75 Pulse Source Pulse Oximeter Temp Source Temporal Artery Scan Pulse Oximetry (%) 98 Oxygen Delivery Method Room Air Intake Visit Reasons: 3 Months Java Application Engineer Required: No Accompanied by: Self / Same As Patient Allergies Penicillins (PCN) Allergy (Intermediate, Verified 02/07/25 15:47) HIVES metformin Adverse Reaction (Intermediate, Verified 02/07/25 15:47) diarrhea Medication List - Last Reconciled 02/07/25 by Brando Ortiz MD albuterol sulfate 90 mcg/actuation 2 puffs inhalation Q4-6H PRN beclomethasone dipropionate 80 mcg/actuation (Qvar RediHaler) 1 inh inhalation BID cholecalciferol (vitamin D3) 50 mcg PO DAILY dulaglutide (Trulicity) 1.5 mg (0.5 mL) subcut QWEEK glipizide ER 2.5 mg PO DAILY 90 days Jardiance (empagliflozin) 25 mg PO QAM 30 days NS Tobacco use date assessed: 02/07/25 Dental Screening Dental Screen Date: 02/07/25 Did you have a dental visit in the last 12 months?: Yes Did you have a dental problem in the last 6 months where you did not have access to dental care?: No HPI 3 Months HPI Details Patient comes in today for his follow up visit Patient states that he feels okay He denies any headaches or dizziness Denies any chest pains, no increased shortness of breath No nausea/vomiting, no abdominal pain No change in bowel habits noted Needs his Trulicity Rx refilled He was not able to get his follow up labs done before his appointment today [facility] Medical History (Updated 02/07/25 @ 15:51 by Brando Ortiz MD) Vitamin D deficiency Pure hypercholesterolemia Overweight (BMI 25.0-29.9) Erectile dysfunction Hypotestosteronism GERD (gastroesophageal reflux disease) Asthma Hyperlipidemia Diabetes mellitus Surgical History No pertinent past surgical history Family History Father Cancer Mother Diabetes CVD (cardiovascular disease) Brother No problems noted. Brother No problems noted. Social History Housing: House Alcohol intake: former Patient Tobacco Use Status: Former Tobacco user e-Cigarette/Vaping Use: Never Used Second Hand Smoke Exposure: Yes service: No Current occupational status: disabled Cognitive needs: No Hearing needs: No Vision needs: Yes (Glasses) Questionnaire PHQ-9 Over the last 2 weeks, how often have you been bothered by any of the following problems? 1. Little interest or pleasure in doing things: not at all 2. Feeling down, depressed, or hopeless: not at all 3. Trouble falling or staying asleep, or sleeping too much: nearly every day 4. Feeling tired or having little energy: nearly every day 5. Poor appetite or overeating: not at all 6. Feeling bad about yourself - or that you are a failure or have let yourself or your family down: not at all 7. Trouble concentrating on things, such as reading the newspaper or watching television: not at all 8. Moving or speaking so slowly that other people could have noticed. Or the opposite - being so fidgety or restless that you have been moving around a lot more than usual: not at all 9. Thoughts that you would be better off or of hurting yourself in some way: not at all Total score: 6 Depression Screening Interpretation: Positive Depression Screening Follow-up: Follow-up Visit Requested Depression Screening Done: Yes 82779 - PHQ-9 Billing: Yes Source: Developed by Drs. Manish Mo, Jyothi Serrano, Deondre An and colleagues, with an educational alicia from [employer]. Thrive Questionnaire Date Thrive assessed: 02/07/25 I am a: Patient What is your living situation today?: I have a steady place to live Within the past 12 months, did the food you bought not last and you didn't have the money to get more?: I choose not to answer this question Within the past 12 months, did you worry whether your food would run out before you got money to buy more?: I choose not to answer this question Do you have trouble paying for medicines?: I choose not to answer this question Do you have trouble getting transportation to medical appointments?: I choose not to answer this question Do you have trouble paying your heating and electricity bill?: I choose not to answer this question Do you have trouble taking care of your child, family member or friend?: I choose not to answer this question Do you have trouble with day-to-day activities such as bathing, preparing meals, shopping, managing finances, etc.?: I choose not to answer this question Are you currently unemployed and looking for a job?: I choose not to answer this question Are you interested in more education?: I choose not to answer this question Please select the resources that you would like help with: None Currently or been in a relationship where the following occur: No concerns reported THRIVE Score: 0 AUDIT C Alcohol Use Questionnaire (AUDIT-C) 1. How often do you have a drink containing alcohol?: Never Total Score: 0 Score Reviewed/Action Taken: Yes ALESSANDRO-7 AMB Questionnaire ALESSANDRO-7 Date ALESSANDRO - 7 assessed: 10/27/24 Feeling nervous, anxious, or on edge: 0 = Not at all Not being able to stop or control worryin = Not at all Worrying too much about different things: 0 = Not at all Trouble relaxin = Nearly every day Being so restless that it is hard to sit still: 3 = Nearly every day Becoming easily annoyed or irritable: 3 = Nearly every day Feeling afraid as if something awful might happen: 0 = Not at all Total ALESSANDRO-7 score (0-4 normal; 5-9 mild; 10-14 moderate; 15-21 severe): 9 Source: Developed by Drs. Manish Mo, Jyothi Serrano, Deondre An and colleagues, with an educational alicia from [employer]. Review of Systems Const Denies chills, Reports fatigue, Denies fever(s) and Denies headache(s) ENT Denies dysphagia, Denies dizziness, Denies otalgia, Denies headache(s), Denies neck pain, Denies odynophagia and Denies sore throat Card Denies chest pain, Denies palpitations and Denies dyspnea Resp Denies chest congestion, Denies cough and Denies dyspnea GI Denies abdominal pain, Denies constipation, Denies dysphagia, Denies heartburn, Denies diarrhea, Denies nausea, Denies odynophagia and Denies vomiting Denies difficulty urinating, Denies dysuria, Reports nocturia and Reports urinary frequency Musc Denies back pain and Denies neck pain Skin/Breast Denies rash Neuro Denies dizziness and Denies headache(s) Endo Reports fatigue and Denies palpitations Hai/Lymph Denies easy bruising Physical exam (Primary Care) Vital Signs: Last Vital Signs Pulse 75 02/07/25 15:09 Resp 18 02/07/25 15:09 BP 100/68 02/07/25 15:09 Pulse Ox 98 02/07/25 15:09 Oxygen Delivery Method Room Air 02/07/25 15:09 BMI result Body Mass Index 29.0 Tobacco/Smoking Status: Tobacco use Status Tobacco use date assessed 02/07/25 02/07/25 15:10 Patient Tobacco Use Status Former Tobacco user 02/07/25 15:10 e-Cigarette/Vaping Use Never Used 02/07/25 15:10 PHQ-9: PHQ-9 Score PHQ-9: Total score 6 02/07/25 16:08 Depression Screening Interpretation: Positive Depression Screening Follow-up: Follow-up Visit Requested Thrive Assessment: Date of Thrive Assessment Date Thrive assessed 02/07/25 02/07/25 15:34 Currently or been in a relationship where the following occur: No concerns reported Const General: no acute distress and alert HENMT Ears: TM's normal bilaterally and EAC's normal Throat: Yes posterior oropharynx normal and Yes tonsils normal (no TP congestion) Neck Neck: Yes no lymphadenopathy and Yes supple Resp Auscultation: clear to auscultation bilaterally, no rales and no wheezes Cardio Rate: regular rate Rhythm: regular rhythm Heart sounds: no murmurs GI Palpation (GI): Soft to palpation and nontender Auscultation: normal bowel sounds Skin Rashes: no rashes Extrem General: Yes no clubbing, cyanosis or edema Results AMB Hemoglobin A1c AMB Hemoglobin A1c 6.6 % Last Edit by LUCIAN Calixto on 02/07/25 16 :09 Results Reviewed Results Reviewed: Laboratory Last Values Hgb A1c (Clinic) 6.6 % (4.0-6.0) H 02/07/25 16:08 Coding Level of Care Code Est Pt Level 4 (76913) Diagnoses Type 2 diabetes mellitus without complication, without long-term current use of insulin E11.9 Diabetes mellitus complication status: without complication Diabetes mellitus skilled nursing insulin use: without terminal operator use Diabetes mellitus type: type 2 Pure hypercholesterolemia E78.00 Mild intermittent asthma without complication J45.20 Asthma complication type: uncomplicated Asthma persistence: intermittent Asthma severity: mild Gastroesophageal reflux disease without esophagitis K21.9 Esophagitis presence: without esophagitis Vitamin D deficiency E55.9 Overweight (BMI 25.0-29.9) E66.3 Additional Codes PHQ-9 - 65010 - PHQ-9 Billing: Yes ([id number]) Assessment & Plan Assessment & Plan (1) Diabetes mellitus: Code(s): E11.9 - Type 2 diabetes mellitus without complications Category: Medical Qualifiers: Diabetes mellitus complication status: without complication Diabetes mellitus skilled nursing insulin use: without skilled nursing use Diabetes mellitus type: type 2 Qualified Code(s): E11.9 - Type 2 diabetes mellitus without complications Plan: His in-office HgbA1c today is at 6.6% (was previously at 8.8% a few months ago) - goal is at least <7.0% Reinforced diabetic diet Continue Glipizide ER 2.5 mg QD, Trulicity 1.5 mg SQ once a week and Jardiance 25 mg Q AM He could not tolerate Metformin or Metformin ER in the past (2) Pure hypercholesterolemia: Code(s): E78.00 - Pure hypercholesterolemia, unspecified Category: Medical Plan: He did not get his follow up labs done prior to his appointment today Reinforced low-cholesterol diet Will recheck his labs and fasting lipids in 3 months for follow-up - will just have patient use his current orders (updated) for his next lab draw (3) Asthma: Code(s): J45.909 - Unspecified asthma, uncomplicated Category: Medical Qualifiers: Asthma complication type: uncomplicated Asthma persistence: intermittent Asthma severity: mild Qualified Code(s): J45.20 - Mild intermittent asthma, uncomplicated Plan: Controlled Continue Montelukast 10 mg QD, Albuterol HFA 2 puffs every 6 hours PRN and Qvar Redihaler 80 mcg 1 inhalation BID (4) GERD (gastroesophageal reflux disease): Code(s): K21.9 - Gastro-esophageal reflux disease without esophagitis Category: Medical Qualifiers: Esophagitis presence: without esophagitis Qualified Code(s): K21.9 - Gastro-esophageal reflux disease without esophagitis Plan: Dietary restrictions reinforced (5) Vitamin D deficiency: Code(s): E55.9 - Vitamin D deficiency, unspecified Category: Medical Plan: Continue Vitamin D3 2000 units QD (6) Overweight (BMI 25.0-29.9): Code(s): E66.3 - Overweight Category: Medical Plan: Reinforced diet/exercise as tolerated/lose weight Plan Follow up in 3 months Patient declined to get a flu shot today Orders: Orders AMB Hemoglobin A1c Today Z13.9 - Encounter for screening, unspecified Medications: Refilled dulaglutide (Trulicity) 1.5 mg (0.5 mL) subcut QWEEK 2 mL 2RF E11.9 - Type 2 diabetes mellitus without complications
== END 2025-02-07 16:04 | disposition home or self-care (01) ==
LOC: HO.HMCH 14:23
PROVIDERS: PCP Internal Medicine; Visit Provider Internal Medicine
DX: E11.9 Type 2 diabetes mellitus without complications (principal); E78.00 Pure hypercholesterolemia, unspecified; J45.20 Mild intermittent asthma, uncomplicated; K21.9 Gastro-esophageal reflux disease without esophagitis; E55.9 Vitamin D deficiency, unspecified; E66.3 Overweight; Z13.9 Encounter for screening, unspecified

== ENCOUNTER → 2025-02-07 14:22 | Outpatient (BNVA) | payer OTHER, MEDICAID, SELFPAY | PROVIDERS: PCP Internal Medicine; Visit Provider Internal Medicine | DX: E11.9 Type 2 diabetes mellitus without complications (principal); E78.00 Pure hypercholesterolemia, unspecified; J45.20 Mild intermittent asthma, uncomplicated; K21.9 Gastro-esophageal reflux disease without esophagitis; E55.9 Vitamin D deficiency, unspecified; E66.3 Overweight; Z68.29 Body mass index [BMI] 29.0-29.9, adult | CPT/HCPCS: 83036; 96127 ==